=== PATIENT | male | born 1970 | race Caucasian/White ===

== ENCOUNTER → 2023-10-20 | Outpatient (CLI) | payer BC ==
[2023-10-20 11:08] LABS: Basophils # (A) 0.05 X 10*3/uL (0.00-0.10); Basophils % (A) 0.7 %; Eosinophils % (A) 4.2 %; HCT 45.3 % (39.6-50.0); HGB 15.3 g/dL (13.0-17.0); Lymphocytes # (A) 1.98 X 10*3/uL (0.90-5.00); Lymphocytes % (A) 27.7 %; MCH 28.9 pg (27.0-32.0); MCHC 33.8 g/dL (32.0-37.0); MCV 85.5 FL (80.0-97.0); Mean Platelet Volume 10.6 FL (9.5-12.2); Monocytes # (A) 0.75 X 10*3/uL (0.20-1.00); Monocytes % (A) 10.5 %; NRBC Per 100 WBC 0 X 10*3/uL (0.00-0.01); Neutrophils # (A) 4.06 X 10*3/uL (1.80-7.70); Neutrophils % (A) 56.6 %; Platelet Count 199 X 10*3/uL (140-440); RDW 12.8 % (11.5-14.5); WBC 7.16 X 10*3/uL (4.50-10.00)
[2023-10-20 11:20] LABS: BUN/Creat Ratio 15.55 Ratio (12.00-20.00); Blood Urea Nitrogen 17.1 mg/dL (9.0-27.0); Chloride 104 mmol/L (96-109); Chol/HDL Ratio 2.95 Ratio; Glucose 102 mg/dL (70-110); LDL Cholesterol,Calculated 101.3 mg/dL (0.0-131.0); Potassium 4.4 mmol/L (3.5-5.5); Sodium 141 mmol/L (135-145); VLDL Calculation 17.06 mg/dL (5.00-40.00)
[2023-10-20 11:21] LABS: ALT 25 U/L (10-49); AST 24 U/L (14-35); Albumin 4.5 g/dL (3.8-4.9); Albumin/Globulin Ratio 2.25 Ratio (1.60-3.17); Alkaline Phosphatase 52 U/L (41-126); Calcium 9.3 mg/dL (8.7-10.3); Carbon Dioxide 28.5 mmol/L (21.6-31.8); Prostate Specific Antigen 0.71 ng/mL (0.000-3.500); Total Bilirubin 0.5 mg/dL (0.3-1.2); Total Protein 6.5 g/dL (6.2-8.2)
== END | disposition home or self-care (01) ==
LOC: LABWHC1 07:32
PROVIDERS: ATTEND Family Medicine
DX: Z00.00 Encounter for general adult medical examination without abnormal findings (principal); Z12.5 Encounter for screening for malignant neoplasm of prostate
CPT/HCPCS: 36415; 80053; 80061; 84153; 84443; 85025